=== PATIENT | male | born 1950 | race Caucasian/White ===

== ENCOUNTER → 2025-03-18 08:08 | Outpatient (REF) | payer MEDICARE, OTHER, SELFPAY ==
[2025-03-18 10:15] LABS: HDL Cholesterol 44 mg/dl; LDL Cholesterol, Calculated 93 mg/dl; Very Low Density Lipoprotein 27 mg/dl (0-30)
== END ==
LOC: HWLAB 08:08
PROVIDERS: ATTENDING PHYSICIAN Family Medicine
DX: E78.2 Mixed hyperlipidemia (principal)
CPT/HCPCS: 36415; 80061